=== PATIENT | male | born 1945 | race Caucasian/White ===

== ENCOUNTER 2019-04-11 22:48 | Inpatient (IN) | payer MEDICARE, BC ==
[~2019-04-11] VITALS: Ht 177.8 cm; Wt 72.6 kg
--- NOTE | 2019-04-11 22:48 | NUR ---
bbra 889 from home, c/o "legs gave out" when walking to restroom today. NO LOC. nad noted. pt aao x4, rr even and unlabored. vss. no other complaints.
--- NOTE | 2019-04-11 23:40 | NUR ---
bs 115 md aware
[2019-04-12] MEDS ORDERED: IV NS 0.9% 500 ML BAG IV ONE
--- NOTE | 2019-04-12 00:06 | NUR ---
CALLED NURSING SUP FOR BED
--- NOTE | 2019-04-12 00:10 | NUR ---
BED 118-2
--- NOTE | 2019-04-12 00:33 | NUR ---
BROUGHT BY RADIOLOGY FOR CT
--- NOTE | 2019-04-12 00:33 | NUR ---
PT TAKEN TO CT VIA ENEDELIA
--- NOTE | 2019-04-12 00:58 | NUR ---
PHLEB AT BEDSIDE FOR LAB DRAW
[2019-04-12 01:11] LABS: BASOPHILS # (AUTO) 0.1 /CMM (0.0-0.2); BASOPHILS % (AUTO) 0.8 % (0.0-2.0); EOSINOPHILS % (AUTO) 3.8 % (0.0-6.0); HEMATOCRIT 42 % (39-51); HEMOGLOBIN 14.1 g/dL (13.5-17.5); LYMPHOCYTES # (AUTO) 1.9 /CMM (0.8-4.8); LYMPHOCYTES % (AUTO) 20.2 % (20.0-44.0); MEAN CORPUSCULAR HGB CONC 34 g/dl (31.0-36.0); MEAN CORPUSCULAR VOLUME 92 fL (80-96); MONOCYTES # (AUTO) 0.9 /CMM (0.1-1.30); MONOCYTES % (AUTO) 9.4 % (2.0-12.0); NEUTROPHILS # (AUTO) 6.1 /CMM (1.8-8.9); NEUTROPHILS % (AUTO) 65.8 % (43.0-81.0); PLATELET COUNT (AUTO) 241 /CMM (150-450); RED BLOOD CELL COUNT(AUTO) 4.52 MIL/uL (4.5-6.0); WHITE BLOOD COUNT (AUTO) 9.3 K/uL (4.3-11.0)
[2019-04-12 01:19] LABS: CALCIUM, SERUM 8.8 mg/dL (8.5-10.1); CARBON DIOXIDE 26 mmol/L (21-32); CHLORIDE 99 mmol/L (98-107); CREATININE 1.5 mg/dL (0.6-1.3); GLUCOSE 112 mg/dL (74-106); POTASSIUM 4.4 mmol/L (3.5-5.1); SODIUM SERUM 134 mmol/L (136-145); UREA NITROGEN, BLOOD 17 mg/dL (7-18)
[2019-04-12 01:21] VITALS: BP 140/90
[2019-04-12 01:25] LABS: ALANINE AMINOTRANSFERASE 22 U/L (12-78); ALBUMIN 3.7 g/dL (3.4-5.0); ALKALINE PHOSPHATASE 71 U/L (46-116); ASPARTATE AMINOTRANSFERASE 16 U/L (15-37); BILIRUBIN,TOTAL 0.3 mg/dL (0.2-1.0); TOTAL PROTEIN, SERUM 6.6 g/dL (6.4-8.2)
[2019-04-12] MEDS ORDERED: IV NS 0.9% 1,000 ML IV PRN (01:36)
[2019-04-12] MEDS ORDERED: HYDROCODONE/APAP 5/325MG 1 EACH TABLET PO PRN (02:00)
[2019-04-12] MEDS ORDERED: MAG HYDROX/AL HYDROX/SIMETH 30 ML UDC PO PRN (02:00)
[2019-04-12] MEDS ORDERED: ONDANSETRON HCL/PF 4 MG/2 ML VIAL IVP PRN (02:00)
[2019-04-12] MEDS ORDERED: MAGNESIUM HYDROXIDE 30 ML UDC PO PRN (02:00)
[2019-04-12] MEDS ORDERED: Z GUARD REMEDY 2 OZ OINT TP PRN (02:00)
[2019-04-12] MEDS ORDERED: ACETAMINOPHEN 325 MG TABLET PO PRN (02:00)
[2019-04-12] MEDS ORDERED: ZOLPIDEM TARTRATE 5 MG TABLET PO PRN (02:00)
[2019-04-12] MEDS ORDERED: ENOXAPARIN SODIUM 40 MG/0.4 ML DISP.SYRIN SQ SCH (02:00)
--- NOTE | 2019-04-12 02:04 | NUR ---
PT REFUSED AMBULATORY ASSISTING DEVICE. AWARE.
--- NOTE | 2019-04-12 03:07 | NUR ---
Patient does not wish to proceed with medical care recommended by Dr. WEAVER. Patient given information related to possible complications, up to and including , which could occur as a result of leaving the hospital at this time. Patient verbalizes understanding of risks involved due to leaving against medical advice. Patient has signed AMA form. PT DISCHARGED TO WAITING ROOM WITH WHEELCHAIR AWAITING CAB.
[2019-04-12] MEDS ORDERED: PANTOPRAZOLE 40 MG TABLET.DR PO SCH (07:30)
== END 2019-04-12 06:00 | disposition left against medical advice (07) | DRG 948 ==
LOC: ER 22:50 → TELE1 04-12 00:50
DX: R53.1 Weakness (principal); E78.5 Hyperlipidemia, unspecified; I10 Essential (primary) hypertension; E11.40 Type 2 diabetes mellitus with diabetic neuropathy, unspecified; Z79.84 Long term (current) use of oral hypoglycemic drugs
CPT/HCPCS: 36415; 70450-TC; 71045-TC; 80048-TC; 80076-TC; 82962-TC; 84484-TC; 85025-TC; A6402; A6403; G0378; J7040